=== PATIENT | female | born 1965 | race Caucasian/White ===

== ENCOUNTER → 2023-05-05 10:53 | Outpatient (BNVA) | payer MEDICAID, SELFPAY | PROVIDERS: PCP Registered Nurse; Visit Provider Internal Medicine | DX: G89.29 Other chronic pain (principal); M25.511 Pain in right shoulder | CPT/HCPCS: 99202 ==

== ENCOUNTER 2023-08-06 10:44 | Day surgery (SDC) | payer MEDICAID, SELFPAY ==
[2023-08-06 10:47] VITALS: BMI 27.3
[2023-08-06 11:27] VITALS: BP 124/79; PULSE 68; RESP 16; TEMP 36.9; O2SAT 95
[2023-08-06 11:29] LABS: Glucose, Whole Blood 88 mg/dL (60-115)
--- NOTE | 2023-08-06 12:34 | MHC.SHP ---
Pre-Procedural Eval Section A Date of Service: 08/06/23 The patient is an INPATIENT: No Changes since office visit: Yes Patient answered all questions The History & Physical has been completed within 30 days and I have reviewed it.: Yes Section B Chief Complaint: Pain in right shoulder, Other chronic pain Relevant Family History (Specify if Yes): No Relevant Social History: None Present Medications: see Short Stay Collaborative assessment Medical History: No relevant PMH History of Previous Operations: No relevant previous surgery Allergies: Allergies Allergy/AdvReac Type Severity Reaction Status Date / Time aspirin [ASA] Allergy Unknown ASTHMA Verified 05/05/23 10:59 ATTACK cortisone [CORTISONE] Allergy Unknown RASH Verified 05/05/23 10:59 cyclobenzaprine Allergy Unknown RASH Verified 05/05/23 10:59 [From FLEXERIL] hydrocodone [From VICODIN] Allergy Unknown HIVES Verified 05/05/23 10:59 lidocaine [LIDOCAINE] Allergy Unknown SWELLING/RA Verified 05/05/23 10:59 SH NSAIDS (Non-Steroidal Allergy Unknown RASH Verified 05/05/23 10:59 Anti-Inflamma [NSAIDS (NON-STEROIDAL ANTI-INFLAMMA] tramadol [From ULTRAM] Allergy Unknown RASH Verified 05/05/23 10:59 anesthesia AdvReac Unknown Unknown Uncoded 07/18/23 09:36 Review of Systems Sugical H&P ROS: Negative: Constitution, Cardiovascular and Respiratory Exam Surgical H&P Exam: Normal: HEENT, Normal: Heart and Normal: Lungs Plan Diagnosis/Plan: Unchanged I have reviewed the history and physical and performed a pertinent physical examination on my patient. No changes have occurred unless specified. Time Spent With Patient Time: Total time managing care of this patient today ____ minutes.
[2023-08-06 13:10] VITALS: BP 122/64; PULSE 64; RESP 18; TEMP 36.1; O2SAT 99
--- NOTE | 2023-08-06 13:13 | P.BOP_ITS ---
Brief Operative Note Date of Service: 08/06/23 Pre-op diagnosis: Intractable right shoulder pain Post-op diagnosis: same Procedure: Temporary right suprascapular nerve stimulator placement Implants: Sprint temporary PNS system Surgeon: Curtis Miller MD Anesthesia: local Was an Straw Hat Washer Operator used for this Procedure?: No Estimated blood loss (mL): 1 Pathology: none sent Condition: stable Disposition: same day
--- NOTE | 2023-08-06 13:14 | W.PM.OPN ---
Operative Note Operative Note Date of Service: 08/06/23 Narrative: Peripheral Nerve Stimulation Temporary Lead Placement, Fluoroscopy-Guided, Suprascapular Nerve, Right ? After the risks, benefits and alternatives were discussed with the patient and informed consent was obtained, patient was placed in the sitting position and padded to foster comfort. Appropriate skin and bony landmarks were identified using ultrasound, including the suprascapular notch. The skin overlying the needle entry site was prepped and draped in sterile fashion. After identifying and marking the intended target along the course of the suprascapular nerve, the skin around the planned entry point and the subcutaneous tissues were injected with local anesthetic. An introducer needle and stimulating probe were assembled, inserted and advanced along the intended course of the right suprascapular nerve, taking care to maintain the proper depth of insertion as the introducer was advanced under ultrasound guidance. Bony contact was achieved with the scapula and maintained throughout. The introducer needle was delivered to a location in proximity to the nerve. Multiple stimulation parameters were used to deliver stimulation to the suprascapular nerve in concert with stimulating at multiple positions around the nerve. Nerve target acquisition was confirmed noting generation of sensory and mild motor effects (paresthesia, muscle tension, etc) in the shoulder and proximal arm; corresponding to the distribution of the suprascapular nerve. Various electrical parameter combinations were tested, and the lead location was adjusted (physically relocated under image guidance) until the patient indicated shoulder paresthesia and tension overlapping the distribution of the patient?s typical region of pain. The stimulating probe was removed from the introducer and a percutaneous lead was guided through the needle and delivered to a location in similar proximity to the nerve. Final location was verified with electrical stimulation and documented. The introducer needle was removed, and the exposed end of the percutaneous lead was attached to an external stimulator unit. Various electrical parameter combinations were again tested until the patient indicated paresthesia and muscle tension overlapping the distribution of the patient?s typical region of pain. After confirming that lead impedance was in the normal range, the external unit was detached, the needle was removed, and the lead was anchored at the skin. The needle entry site was occluded with dermabond. The lead was threaded into the connector block and electrical continuity and desired patient response was confirmed. The connector block was attached to the external stimulator unit. The site was covered with a sterile occlusive dressing.? A final image was taken to document final placement. The patient was observed for stability of vital signs and comfort.
[2023-08-06 13:18] LABS: Glucose, Whole Blood 108 mg/dL (60-115)
== END 2023-08-06 13:42 | disposition home or self-care (01) ==
PROVIDERS: PCP Student in an Organized Health Care Education/Training Program; Visit Provider Internal Medicine
PROC: (CPT 64555; principal; 2023-08-06 12:40)
DX: M25.511 Pain in right shoulder (principal); G89.29 Other chronic pain; Z87.828 Personal history of other (healed) physical injury and trauma; J45.909 Unspecified asthma, uncomplicated; R91.1 Solitary pulmonary nodule; I10 Essential (primary) hypertension; E11.9 Type 2 diabetes mellitus without complications; F10.11 Alcohol abuse, in remission; Z79.84 Long term (current) use of oral hypoglycemic drugs; Z79.899 Other long term (current) drug therapy; Z88.8 Allergy status to other drugs, medicaments and biological substances; Z98.890 Other specified postprocedural states; Z86.19 Personal history of other infectious and parasitic diseases
CPT/HCPCS: 64555; 82947; C1778

== ENCOUNTER → 2023-08-06 10:44 | Outpatient (BNV) | payer MEDICAID, SELFPAY | PROVIDERS: PCP Student in an Organized Health Care Education/Training Program; Visit Provider Internal Medicine | DX: M25.511 Pain in right shoulder (principal) | CPT/HCPCS: 64555 ==

== ENCOUNTER 2023-08-11 12:49 | Outpatient (AMB) | payer MEDICAID, SELFPAY ==
--- NOTE | 2023-08-11 13:05 | A.OFFVIS_ITS ---
Intake Vital Signs 08/11/23 13:07 Height 5 ft 6 in Weight 169 lb BMI 27.3 BP 118/69 Blood Pressure Location Lt brachial Position Sitting Respiration 14 Pulse 80 Pulse Source Pulse Oximeter Pulse Oximetry (%) 97 Oxygen Delivery Method Room Air Intake Visit Reasons: s/p Right suprascapular Sprint Allergies aspirin [ASA] Allergy (Unknown, Verified 08/11/23 13:08) ASTHMA ATTACK cortisone [CORTISONE] Allergy (Unknown, Verified 08/11/23 13:08) RASH cyclobenzaprine [From FLEXERIL] Allergy (Unknown, Verified 08/11/23 13:08) RASH hydrocodone [From VICODIN] Allergy (Unknown, Verified 08/11/23 13:08) HIVES lidocaine [LIDOCAINE] Allergy (Unknown, Verified 08/11/23 13:08) SWELLING/RASH NSAIDS (Non-Steroidal Anti-Inflamma [NSAIDS (NON-STEROIDAL ANTI-INFLAMMA] Allergy (Unknown, Verified 08/11/23 13:08) RASH tramadol [From ULTRAM] Allergy (Unknown, Verified 08/11/23 13:08) RASH anesthesia Adverse Reaction (Unknown, Uncoded 08/11/23 13:08) Unknown Medication List - Last Reconciled 08/11/23 by Luda Harris LPN albuterol sulfate 90 mcg/actuation (Ventolin HFA) 2 puffs inhalation Q4H PRN codeine sulfate 30 mg PO BID PRN fexofenadine (Brigid Allergy) 180 mg PO DAILY sitagliptin phos-metformin 50-500 mg (Janumet) 1 tab PO DAILY HPI s/p Right suprascapular Sprint HPI Details 58-year-old female who presents today to the office for a status post right suprascapular sprint. She has some improvement in her pain. She has not changed dressing at home. She has no pain around the device placement. She has mild itchiness, but she avoids scratching. She states that her device's battery is fully charged. She noticed a pressure sensation and pain after increasing the device setting. She does volunteer work, which includes heavy lifting. Past procedure: 08/06/23: Peripheral Nerve Stimulation T emporary Lead Placement, Fluoroscopy- Guided, Suprascapular Nerve, Right: moderate relief so far. 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 Alert and oriented. Mood and affect appropriate. Follows and participates in conversation appropriately. Respiratory effort is unlabored. Able to transition from sit to stand unassisted. Ambulates with bilaterally normal heel strike and toe off. Lead insertion site is clean dry intact. Results Reviewed Results Reviewed: No imaging is available for review. Assessment & Plan Assessment & Plan (1) Chronic right shoulder pain: Code(s): M25.511 - Pain in right shoulder; G89.29 - Other chronic pain Plan The dressing was changed today in the office. Advised to avoid heavy lifting at home or work. The patient will follow up weekly with our nurse for dressing changes. I will see her back in 7 weeks for device removal. Scribed for Dr. Miller by Manuelito Ceballos, medical physiologist, on 08/11/2023. I, Dr. Miller, have personally reviewed and agree with the information entered by the scribe. Coding Level of Care Code Est Pt Level 3 (55988) Diagnoses Chronic right shoulder pain M25.511; G89.29
[2023-08-11 13:07] VITALS: BP 118/69; PULSE 80; RESP 14; O2SAT 97; BMI 27.3
== END 2023-08-11 13:29 | disposition home or self-care (01) ==
PROVIDERS: PCP Registered Nurse; Visit Provider Internal Medicine
DX: M25.511 Pain in right shoulder (principal); G89.29 Other chronic pain
CPT/HCPCS: 99024

== ENCOUNTER → 2023-08-11 12:49 | Outpatient (BNVA) | payer MEDICAID, SELFPAY | PROVIDERS: PCP Registered Nurse; Visit Provider Internal Medicine | DX: M25.511 Pain in right shoulder (principal); G89.29 Other chronic pain | CPT/HCPCS: 99212 ==

== ENCOUNTER → 2023-08-19 12:47 | Outpatient (BNVA) | payer MEDICAID, SELFPAY | PROVIDERS: PCP Registered Nurse; Visit Provider Internal Medicine | DX: Z48.01 Encounter for change or removal of surgical wound dressing (principal) | CPT/HCPCS: 99211 ==

== ENCOUNTER → 2023-08-27 12:53 | Outpatient (BNVA) | payer MEDICAID, SELFPAY | PROVIDERS: PCP Registered Nurse; Visit Provider Internal Medicine | DX: Z48.1 Encounter for planned postprocedural wound closure (principal) | CPT/HCPCS: 99211 ==

== ENCOUNTER → 2023-09-08 12:45 | Outpatient (BNVA) | payer MEDICAID, SELFPAY | PROVIDERS: PCP Registered Nurse; Visit Provider Internal Medicine ==

== ENCOUNTER → 2023-09-17 12:46 | Outpatient (BNVA) | payer MEDICAID, SELFPAY | PROVIDERS: PCP Registered Nurse; Visit Provider Internal Medicine | DX: Z48.00 Encounter for change or removal of nonsurgical wound dressing (principal) | CPT/HCPCS: 99211 ==

== ENCOUNTER → 2023-10-06 | Outpatient (BNVA) | payer MEDICAID, SELFPAY | PROVIDERS: PCP Registered Nurse; Visit Provider Nurse Practitioner Family | DX: Z45.49 Encounter for adjustment and management of other implanted nervous system device (principal) | CPT/HCPCS: 99211 ==

== ENCOUNTER 2024-07-28 09:52 | Outpatient (AMB) | payer MEDICAID, SELFPAY ==
--- NOTE | 2024-07-28 09:59 | A.OFFVIS_ITS ---
Vital Signs 07/28/24 10:00 Height 5 ft 6 in Weight 176 lb BMI 28.4 BP 131/60 Blood Pressure Location Lt brachial Position Sitting Respiration 15 Pulse 71 Pulse Source Pulse Oximeter Pulse Oximetry (%) 98 Oxygen Delivery Method Room Air Intake Visit Reasons: Right Shoulder Pain Allergies aspirin [ASA] Allergy (Unknown, Verified 07/28/24 10:02) ASTHMA ATTACK cortisone [CORTISONE] Allergy (Unknown, Verified 07/28/24 10:02) RASH cyclobenzaprine [From FLEXERIL] Allergy (Unknown, Verified 07/28/24 10:02) RASH hydrocodone [From VICODIN] Allergy (Unknown, Verified 07/28/24 10:02) HIVES lidocaine [LIDOCAINE] Allergy (Unknown, Verified 07/28/24 10:02) SWELLING/RASH NSAIDS (Non-Steroidal Anti-Inflamma [NSAIDS (NON-STEROIDAL ANTI-INFLAMMA] Allergy (Unknown, Verified 07/28/24 10:02) RASH tramadol [From ULTRAM] Allergy (Unknown, Verified 07/28/24 10:02) RASH anesthesia Adverse Reaction (Unknown, Uncoded 07/28/24 10:02) Unknown Medication List - Last Reconciled 07/28/24 by Luda Harris LPN albuterol sulfate 90 mcg/actuation (Ventolin HFA) 2 puffs inhalation Q4H PRN fexofenadine (Brigid Allergy) 180 mg PO DAILY HPI HPI Right Shoulder Pain: Details: 58-year-old female who presents today to the office for an evaluation of right shoulder pain. Patient complains of right shoulder pain which bothers her most. She was last seen here on 08/11/23 for a follow-up after PNS temporary lead placement. She is status post right suprascapular sprint. She has had some moderate relief following PNS temporary lead placement. States that her insurance is not covering for sprint. She spoke with her insurance, they informed her that only surgery will be covered by the insurance. Reports that sprint helped her a lot in the past, and would like to try it again. She has been taking Percocet for many years. Patient is following up with Pain management in [place], and was recommended to take regular Tylenol for pain. Past procedure: 08/06/23: Peripheral Nerve Stimulation Temporary Lead Placement, FLuoro-Guided, Suprascapular Nerve, Right: moderate relief so far. PFSH Medical History (Updated 05/05/23 @ 12:01 by Curtis Miller MD) Rotator cuff arthropathy of left shoulder Type 2 diabetes mellitus without complication, without long-term current use of insulin Overweight History of essential hypertension History of solitary pulmonary nodule Hepatitis A antibody positive Hepatitis B antibody positive Pulmonary nodule Abnormal ultrasound of breast History of hepatitis C History of alcohol abuse Rotator cuff tear Asthma Physical Exam Vital Signs: Last Vital Signs Pulse 71 07/28/24 10:00 Resp 15 07/28/24 10:00 BP 131/60 07/28/24 10:00 Pulse Ox 98 07/28/24 10:00 Oxygen Delivery Method Room Air 07/28/24 10:00 BMI result Body Mass Index 28.4 General: Appears afebrile. Alert and oriented. Mood and affect appropriate. Follows and participates in conversation appropriately. Respiratory effort is unlabored. Able to transition from sit to stand unassisted. Ambulates with bilaterally normal heel strike and toe off. Assessment & Plan Assessment & Plan (1) Chronic right shoulder pain: Code(s): M25.511 - Pain in right shoulder; G89.29 - Other chronic pain Category: Medical Plan Repeat right Suprascapular pain, temporary nerve stimulator placement. Patient reported 11 months of relief from her right Suprascapular nerve stimulator trial last year. She is interested in repeating that procedure. Has previously been on opioid therapy and it was effective in relieving her symptoms. Scribed for Dr. Miller by Julissa medical instrument technician, on 07/28/2024. I, Dr. Miller, have personally reviewed and agree with the information entered by the scribe. Coding Level of Care Code Est Pt Level 3 (75244) Diagnoses Chronic right shoulder pain M25.511; G89.29
[2024-07-28 10:00] VITALS: BP 131/60; PULSE 71; RESP 15; O2SAT 98; BMI 28.4
== END 2024-07-28 10:33 | disposition home or self-care (01) ==
PROVIDERS: PCP Registered Nurse; Visit Provider Internal Medicine
DX: M25.511 Pain in right shoulder (principal); G89.29 Other chronic pain
CPT/HCPCS: 99213

== ENCOUNTER → 2024-07-28 09:52 | Outpatient (BNVA) | payer MEDICAID, SELFPAY | PROVIDERS: PCP Registered Nurse; Visit Provider Internal Medicine | DX: M25.511 Pain in right shoulder (principal); G89.29 Other chronic pain | CPT/HCPCS: 99212 ==

== ENCOUNTER 2024-08-12 08:52 | Outpatient (REF) | payer MEDICAID, SELFPAY | END 2024-08-12 08:53 | disposition home or self-care (01) | LOC: CF 08:52 | PROVIDERS: Visit Provider Internal Medicine | DX: M25.551 Pain in right hip (principal); G89.29 Other chronic pain; Z45.42 Encounter for adjustment and management of neurostimulator | CPT/HCPCS: 64555; C1778; J2003 ==

== ENCOUNTER 2024-08-12 09:49 | Outpatient (AMB) | payer MEDICAID, SELFPAY ==
[2024-08-12 10:43] VITALS: BP 138/75; PULSE 63; RESP 19; O2SAT 97
--- NOTE | 2024-08-12 10:44 | A.OFFVIS_ITS ---
Vital Signs 08/12/24 10:43 08/12/24 11:17 BP 138/75 115/71 Blood Pressure Location Rt brachial Lt brachial Position Sitting Sitting Respiration 19 19 Pulse 63 68 Pulse Source Pulse Oximeter Pulse Oximeter Pulse Oximetry (%) 97 98 Oxygen Delivery Method Room Air Room Air Comment Pre-op Post-op Intake Visit Reasons: right shoulder Sprint Allergies aspirin [ASA] Allergy (Unknown, Verified 07/28/24 10:02) ASTHMA ATTACK cortisone [CORTISONE] Allergy (Unknown, Verified 07/28/24 10:02) RASH cyclobenzaprine [From FLEXERIL] Allergy (Unknown, Verified 07/28/24 10:02) RASH hydrocodone [From VICODIN] Allergy (Unknown, Verified 07/28/24 10:02) HIVES lidocaine [LIDOCAINE] Allergy (Unknown, Verified 07/28/24 10:02) SWELLING/RASH NSAIDS (Non-Steroidal Anti-Inflamma [NSAIDS (NON-STEROIDAL ANTI-INFLAMMA] Allergy (Unknown, Verified 07/28/24 10:02) RASH tramadol [From ULTRAM] Allergy (Unknown, Verified 07/28/24 10:02) RASH anesthesia Adverse Reaction (Unknown, Uncoded 07/28/24 10:02) Unknown HPI HPI right shoulder Sprint: Details: Patient presents for scheduled procedure. Denies any recent cough, cold, infection, fever or other significant changes in medical history since last office visit. [facility] Medical History (Updated 05/05/23 @ 12:01 by Curtis Miller MD) Rotator cuff arthropathy of left shoulder Type 2 diabetes mellitus without complication, without long-term current use of insulin Overweight History of essential hypertension History of solitary pulmonary nodule Hepatitis A antibody positive Hepatitis B antibody positive Pulmonary nodule Abnormal ultrasound of breast History of hepatitis C History of alcohol abuse Rotator cuff tear Asthma Office Procedures Details: Peripheral Nerve Stimulation Temporary Lead Placement, Ultrasound-Guided, Suprascapular Nerve, Right ? After the risks, benefits and alternatives were discussed with the patient and informed consent was obtained, patient was placed in the sitting position and padded to foster comfort. Appropriate skin and bony landmarks were identified using fluoroscopy, including the right suprascapular notch. The skin overlying the needle entry site was prepped and draped in sterile fashion. After identifying and marking the intended target along the course of the suprascapular nerve, an introducer needle and stimulating probe were assembled, inserted and advanced along the intended course of the suprascapular nerve, taking care to maintain the proper depth of insertion as the introducer was advanced under ultrasound guidance. Bony contact was achieved with the scapula and maintained throughout. The introducer needle was delivered to a location in proximity to the nerve. Multiple stimulation parameters were used to deliver stimulation to the suprascapular nerve in concert with stimulating at multiple positions around the nerve. Nerve target acquisition was confirmed noting generation of sensory and mild motor effects (paresthesia, muscle tension, etc) in the shoulder and proximal arm; corresponding to the distribution of the suprascapular nerve. Various electrical parameter combinations were tested, and the lead location was adjusted (physically relocated under image guidance) until the patient indicated shoulder paresthesia and tension overlapping the distribution of the patient?s typical region of pain. The stimulating probe was removed from the introducer and a percutaneous lead was guided through the needle and delivered to a location in similar proximity to the nerve. Final location was verified with electrical stimulation and documented. The introducer needle was removed, and the exposed end of the percutaneous lead was attached to an external stimulator unit. Various electrical parameter combinations were again tested until the patient indicated paresthesia and muscle tension overlapping the distribution of the patient?s typical region of pain. After confirming that lead impedance was in the normal range, the external unit was detached, the needle was removed, and the lead was anchored at the skin. The needle entry site was occluded with dermabond. The lead was threaded into the connector block and electrical continuity and desired patient response was confirmed. The connector block was attached to the external stimulator unit. The site was covered with a sterile occlusive dressing.? A final image was taken to document final placement. The patient was observed for stability of vital signs and comfort. Sprint PNS Device: Sprint PNS Device [id number] Percutaneous Peripheral Neuroelectrode Procedure: 80961 - Percutaneous Peripheral Neuroelectrode Procedure code (CPT) selection complete Office Meds lidocaine HCl 10 mg/mL (1 %) injection solution Performing Provider: Janey Hernandez APRN, ANA M Performing Location: [facility] Documented (not given) by: Curtis Miller MD on 08/12/24 10:44 Reason Not Given: Patient is Allergic Assessment & Plan Assessment & Plan (1) Chronic right shoulder pain: Code(s): M25.511 - Pain in right shoulder; G89.29 - Other chronic pain Category: Medical Plan Patient is status post right temporary suprascapular nerve stimulator placement. Patient tolerated procedure well and was discharged home in stable condition with discharge instructions. All questions were answered. We will follow-up via telephone or in clinic to assess response to therapy. A follow-up appointment was made during today's visit. Orders: Orders US guide needle placement 08/11/24 Janey Hernandez APRN, INSTALLATION ENGINEER G89.29 - Other chronic pain, M25.511 - Pain in right shoulder AMB Sprint PNS Today Janey Hernandez APRN, INSTALLATION ENGINEER G89.29 - Other chronic pain, M25.511 - Pain in right shoulder Medications: New lidocaine HCl 5 mL subcut ONCE 5 mL 0RF Curtis Miller MD G89.29 - Other chronic pain, M25.511 - Pain in right shoulder Coding Level of Care Code Procedure Only Diagnoses Chronic right shoulder pain M25.511; G89.29 CPT Codes Sprint PNS - Sprint PNS Device: Sprint PNS Device ([id number]) Sprint PNS - SPRINT: 13795 - Percutaneous Peripheral Neuroelectrode ([id number]) Implantable Device Implantable Device Implantable Devices Qty Hand Salter Implant Date Expiration Date Analgesic PENS system 1 [employer] 08/12/24 02/01/26
[2024-08-12 11:17] VITALS: BP 115/71; PULSE 68; RESP 19; O2SAT 98
== END 2024-08-12 11:27 | disposition home or self-care (01) ==
LOC: HO.PMCPRC 09:49
PROVIDERS: PCP Registered Nurse; Referring Provider Registered Nurse; Visit Provider Internal Medicine
DX: M25.511 Pain in right shoulder (principal); G89.29 Other chronic pain
CPT/HCPCS: 64555

== ENCOUNTER → 2024-08-25 14:24 | Outpatient (BNVA) | payer MEDICAID, SELFPAY | PROVIDERS: PCP Registered Nurse; Visit Provider Internal Medicine ==

== ENCOUNTER → 2024-09-01 10:25 | Outpatient (BNVA) | payer MEDICAID, SELFPAY | PROVIDERS: PCP Registered Nurse; Visit Provider Internal Medicine ==

== ENCOUNTER → 2024-09-08 10:23 | Outpatient (BNVA) | payer MEDICAID, SELFPAY | PROVIDERS: PCP Registered Nurse; Visit Provider Internal Medicine ==

== ENCOUNTER → 2024-09-21 10:43 | Outpatient (BNVA) | payer MEDICAID, SELFPAY | PROVIDERS: PCP Registered Nurse; Visit Provider Internal Medicine ==